=== PATIENT | female | born 1960 | race Caucasian/White ===

== ENCOUNTER → 2019-09-26 11:35 | Outpatient (CLI) | payer BC, SELFPAY ==
[2019-09-25 16:10] VITALS: BMI 27.8
[2019-10-02 01:58] LABS: HPV Reflexed? NOT INDICATED
== END ==
PROVIDERS: PCP Family Medicine; Referring Provider Family Medicine; Visit Provider Family Medicine
DX: Z01.419 Encounter for gynecological examination (general) (routine) without abnormal findings (principal)
CPT/HCPCS: 88175; G0145

== ENCOUNTER → 2019-10-08 14:41 | Outpatient (CLI) | payer BC, SELFPAY ==
[2019-09-25 16:10] VITALS: BMI 27.8
--- NOTE | 2019-10-08 15:38 | BI_ITS ---
MAMMOGRAPHY - UNILATERAL SCREENING: RIGHT BREAST REASON FOR EXAM: Female, 59 years old. Routine annual screening examination (unilateral). PERTINENT HISTORY: Personal history of breast cancer. Prior left mastectomy. Aunt with breast cancer. TECHNIQUE: Digital unilateral breast berry (3D mammographic acquisition) in the CC and MLO projections. 2-D mediolateral oblique (MLO) and craniocaudad (CC) views of both breasts were obtained. CAD: Full Field Digital Mammography with Computer Added Detection was performed. COMPARISON: Comparison is made with prior abdomen examination dated May 20, 2017. FINDINGS: Breast Composition: The breasts are almost entirely fatty. There are no dominant masses or suspicious calcifications. Stable small benign appearing left axillary lymph nodes. No other significant abnormalities are identified. There has been no significant change since the prior study. BI/SCREEN MAMM (CAD) W/BERRY UNI R IMPRESSION: Stable unilateral screening mammogram. Yearly follow-up mammogram recommended. (A) ASSESSMENT CATEGORY: BIRADS Category 2: Benign. A letter regarding these results will be sent to the patient by the facility within 30 days. Approximately 10% of breast cancers are not detected by mammography. A normal mammogram should not delay biopsy of a clinically suspicious abnormality. [id number] Electronically Signed: Mickey Lebron, at 14:36 EDT , Service support ,
[2019-10-08 17:18] LABS: Anion Gap 6 (5-15); BUN 15 mg/dL (7-18); Calcium,Total 8.8 mg/dL (8.5-10.1); Chloride 108 mmol/L (98-107); EST Glomerular Filtration Rate 60 mL/min (>60); Est Glom Filt Rate - Afr Amer 73 mL/min (>60); Glucose 91 mg/dL (74-106); Potassium 3.8 mmol/L (3.5-5.1); Sodium Level 142 mmol/L (136-145)
== END ==
PROVIDERS: PCP Family Medicine; Referring Provider Family Medicine; Visit Provider Family Medicine
DX: Z12.31 Encounter for screening mammogram for malignant neoplasm of breast (principal); I10 Essential (primary) hypertension
CPT/HCPCS: 36415; 77063; 77067; 80048

== ENCOUNTER → 2020-07-10 09:30 | Outpatient (CLI) | payer BC, SELFPAY ==
[2020-07-10 09:04] VITALS: BMI 29.7
[2020-07-10 12:24] LABS: Erythrocyte Sedimentation Rate 11 mm/hr (0-30)
[2020-07-10 12:30] LABS: CRP 3.03 mg/L (0.0-3.0)
== END ==
PROVIDERS: PCP Family Medicine; Referring Provider Physician Assistant; Visit Provider Physician Assistant
DX: M25.539 Pain in unspecified wrist (principal)
CPT/HCPCS: 36415; 85652; 86140

== ENCOUNTER → 2020-10-15 | Outpatient (CLI) | payer BC, SELFPAY ==
[2020-10-15 13:11] VITALS: BMI 29.7
[2020-10-15 13:45] LABS: Bacteria 0 SEEN /hpf (None Seen); Mucous, Urine 0 SEEN /hpf (<or=2+); Red Blood Cells-Urine 0 SEEN /hpf (0-5); Squamous Epithelial Cells - UA 0 SEEN /hpf (5-10); White Blood Cells 0 SEEN /hpf (0-5)
--- NOTE | 2020-10-15 14:23 | RAD_ITS ---
STUDY: X-RAY - RIGHT KNEE REASON FOR EXAM: Female, 60 years old. Chronic pain and intermittent swelling. TECHNIQUE: 3 view(s) of the knee. COMPARISON: None. FINDINGS: Normal visualized distal femur. Normal visualized proximal tibia and fibula. Normal proximal tibiofibular articulation. There is mild degenerative arthrosis of the medial femorotibial compartment. Normal lateral femorotibial compartment. There is severe degenerative arthrosis of the patellofemoral articulation. The soft tissue structures are unremarkable. RAD/Knee 3 Views IMPRESSION: Degenerative arthrosis. Electronically Signed: Mickey Lebron MD at 20:49 EDT , Service support ,
[2020-10-15 15:14] LABS: Color, Urine Yellow (Yellow); Glucose, Dipstick Normal (Normal); Ketone-Dipstick Negative (Negative); Leukocyte Esterase-Dipstick Negative /ul (Negative); Nitrite-Dipstick Negative (Negative); Occult Blood-Urine Negative /ul (Negative); Protein-Dipstick Negative (Negative); Urine Bilirubin Dipstick Negative (Negative); Urine Clarity Clear (Clear); Urine Urobilinogen Normal (Normal); Urine pH 6.5 (5.0 - 8.0)
[2020-10-15 15:23] LABS: Erythrocyte Sedimentation Rate 8 mm/hr (0-30)
[2020-10-15 15:45] LABS: ALB/GLOB Ratio 1.1 RATIO (0.9-2.4); AST(SGOT) 28 U/L (15-37); Alanine Aminotransfer ALT/SGPT 58 U/L (13-56); Albumin, Serum 3.9 g/dL (3.2-5.0); Alkaline Phosphatase 71 U/L (45-117); Anion Gap 4 (5-15); BUN 14 mg/dL (7-18); BUN/Creat Ratio 17.4 RATIO (10-20); Calcium,Total 9.1 mg/dL (8.5-10.1); Chloride 108 mmol/L (98-107); EST Glomerular Filtration Rate 77 mL/min (>60); Est Glom Filt Rate - Afr Amer 94 mL/min (>60); Globulin 3.7 g/dL (2.2-4.2); Glucose 77 mg/dL (74-106); Potassium 4.3 mmol/L (3.5-5.1); Protein, Total 7.6 g/dL (6.4-8.2); Sodium Level 139 mmol/L (136-145); Thyroid Stim Hormone (TSH) 1.58 uIU/mL (0.358-3.74)
== END | disposition home or self-care (01) ==
PROVIDERS: PCP Family Medicine; Referring Provider Family Medicine; Visit Provider Family Medicine
DX: I10 Essential (primary) hypertension (principal); K58.9 Irritable bowel syndrome, unspecified; R35.0 Frequency of micturition; M25.561 Pain in right knee
CPT/HCPCS: 36415; 73562; 80053; 81001; 84443; 85652

== ENCOUNTER → 2022-06-29 | Outpatient (CLI) | payer BC, SELFPAY ==
[2022-06-29 15:25] LABS: Absolute Lymphocyte Count 1.81 X10^3/uL (0.83-4.51); Absolute Neutrophil Count 2.9 X10^3/uL (2.0-7.7); Basophil# 0.07 X10^3/uL; Basophil% 1.3 % (0-1); Eosinophil# 0.26 X10^3/uL; Eosinophils% 4.8 % (0-5); Hematocrit 43.3 % (37-47); Hemoglobin 14.2 g/dL (12.0-15.0); Lymphocyte # 1.81 X10^3/ul (0.83-4.51); Lymphocyte % 33.3 % (19-41); Mean Corp Hgb Conc 32.8 g/dL (32-36); Mean Corpuscular Hgb 30.2 pg (27.0-32.0); Mean Corpuscular Volume 92.1 fL (81-99); Mean Platelet Vol. 10.5 fl (6.2-12.0); Monocyte# 0.41 X10^3/uL; Monocyte% 7.6 % (0-10); NRBC Flagged by Analyzer 0 % (0-5); Neutrophil # 2.87 X10^3/uL (2.7-7.7); Neutrophil % 52.8 % (47-70); Platelet Count 231 K/mm3 (150-450); RBC Distribution Width CV 12.1 % (11.6-14.6); RBC Distribution Width SD 41.2 fl (35.1-43.9); White Blood Count 5.4 K/mm3 (4.4-11.0)
[2022-06-29 15:29] LABS: AST(SGOT) 23 U/L (15-37); Alanine Aminotransfer ALT/SGPT 49 U/L (13-56); Albumin, Serum 3.8 g/dL (3.2-5.0); Alkaline Phosphatase 64 U/L (45-117); Anion Gap 4 (5-15); BUN 19 mg/dL (7-18); BUN/Creat Ratio 22.8 RATIO (10-20); Calcium,Total 9.4 mg/dL (8.5-10.1); Chloride 110 mmol/L (98-107); Creatinine, Serum 0.83 mg/dL (0.55-1.02); EST Glomerular Filtration Rate 74 mL/min (>60); Est Glom Filt Rate - Afr Amer 89 mL/min (>60); Globulin 3.8 g/dL (2.2-4.2); Glucose 92 mg/dL (74-106); Protein, Total 7.6 g/dL (6.4-8.2); Sodium Level 140 mmol/L (136-145)
[2022-06-29 16:06] LABS: Erythrocyte Sedimentation Rate 5 mm/hr (0-30)
== END | disposition home or self-care (01) ==
PROVIDERS: PCP Family Medicine; Referring Provider Family Medicine; Visit Provider Family Medicine
DX: I10 Essential (primary) hypertension (principal); K21.9 Gastro-esophageal reflux disease without esophagitis
CPT/HCPCS: 36415; 80053; 85025; 85652

== ENCOUNTER → 2022-07-27 | Outpatient (CLI) | payer BC, SELFPAY ==
--- NOTE | 2022-07-27 09:42 | RAD_ITS ---
PROCEDURE: ESOPHAGRAM - CONTRAST UPPER GASTROINTESTINAL STUDY DATE OF EXAMINATION: July 27, 2022. INDICATION: Female, 62 years old. Upper abdominal pain and gastroesophageal reflux. PHYSICIAN: Mickey Lebron M.D. FLUOROSCOPY TIME (if supplied): (0:49) minutes/seconds. 29.91 mGy. 8 spot images were obtained. TECHNIQUE: The esophagus, stomach, duodenum and proximal small bowel were evaluated with barium. The contrast material passes freely through the structures with no intraluminal filling defect identified. There is no mucosal irregularity. There is no leakage of contrast outside the gastrointestinal system. There is evidence of a small sliding nail hernia with gastroesophageal reflux. The patient ingested a 12 mm tablet of barium without any difficulty. The stomach is unremarkable. No evidence of ulceration. No mass lesion is seen. The proximal small bowel is not dilated and there is a rapid transient time for the contrast to pass through the gastrointestinal tract. RAD/Upper GI w/BA Swallow IMPRESSION: Small sliding hiatal hernia with gastroesophageal reflux. Electronically Signed: Mickey Lebron MD at 11:06 EDT ,
== END | disposition home or self-care (01) ==
LOC: RAD 09:41
PROVIDERS: PCP Family Medicine; Referring Provider Surgery; Visit Provider Surgery
DX: K21.9 Gastro-esophageal reflux disease without esophagitis (principal)
CPT/HCPCS: 74246

== ENCOUNTER → 2022-07-29 | Outpatient (CLI) | payer BC, SELFPAY ==
--- NOTE | 2022-07-29 12:22 | US_ITS ---
STUDY: ULTRASOUND BREAST - RIGHT REASON FOR EXAM: Female, 62 years old. Palpable lump in the right breast. TECHNIQUE: Axial and longitudinal images of the RIGHT breast were performed with a high resolution ultrasound transducer. # OF IMAGES: 14 COMPARISON: Comparison is made with prior mammogram done earlier in the day. FINDINGS: RIGHT Breast: The palpable abnormality corresponds to a 6 mm x 6 mm x 3 mm echogenic nodule at the 3:00 position of the breast at the 8 cm from nipple. A similar appearing nodule measuring 0.8 cm by 1.6 x 0.5 cm is seen adjacent to this location. These most likely represent lipomas. US/Breast Limited Unilateral IMPRESSION: Findings suggestive of a 2 small lipomas in the 3:00 position of the right breast. ASSESSMENT CATEGORY: BIRADS Category 2: Benign. A letter regarding these results will be sent to the patient by the facility within 30 days. Electronically Signed: Mickey Lebron MD at 14:55 EDT ,
--- NOTE | 2022-07-29 12:22 | BI_ITS ---
MAMMOGRAPHY - UNILATERAL DIAGNOSTIC: RIGHT BREAST REASON FOR EXAM: Female, 62 years old. Palpable lump in the central medial aspect of the right breast. PERTINENT HISTORY: Personal history of breast cancer. Aunts with breast cancer. TECHNIQUE: Digital unilateral breast jagdeep (3D mammographic acquisition) in the CC and MLO projections. 2-D mediolateral oblique (MLO) and craniocaudad (CC) views of both breasts were obtained. CAD: Full Field Digital Mammography with Computer Added Detection was performed. COMPARISON: Comparison is made with prior study dated October 08, 2019 and outside examination dated January 05, 2022. FINDINGS: Breast Composition: The breasts are almost entirely fatty. There are no dominant masses or suspicious calcifications. The patient is status post left mastectomy. Stable small benign-appearing right axillary lymph nodes. No other significant abnormalities are identified. There has been no significant change since the prior study. BI/DIAG MAMM W/CAD, UNILAT IMPRESSION: Stable unilateral diagnostic mammogram. With the patient''s history of a palpable lump in the right breast, correlation with ultrasound is recommended. ASSESSMENT CATEGORY: BIRADS Category 0: Incomplete. Need additional imaging evaluation. A letter regarding these results will be sent to the patient by the facility within 30 days. Approximately 10% of breast cancers are not detected by mammography. A normal mammogram should not delay biopsy of a clinically suspicious abnormality. Electronically Signed: Mickey Lebron MD at 13:50 EDT ,
== END | disposition home or self-care (01) ==
PROVIDERS: PCP Family Medicine; Referring Provider Surgery; Visit Provider Surgery
DX: N63.10 Unspecified lump in the right breast, unspecified quadrant (principal); Z85.3 Personal history of malignant neoplasm of breast
CPT/HCPCS: 76642; 77061; 77065; G0279

== ENCOUNTER → 2022-08-11 | Outpatient (CLI) | payer BC, SELFPAY ==
--- NOTE | 2022-08-11 | BRBX_PTH ---
PATIENT: NIKHIL DAWSON LOC: [facility] #:[id number] AGE/SX: 62/F ROOM: RE08/11/[address]: Dr. Keon Langston MD : 1960 BED: DIS: 08/11/2022 SPEC #: [id number] RECD: 08/11/22 15:31 STATUS: [facility] #: [id number] NELSON: 08/11/22 00:[address]: Keon Langston DEPT: SURGICAL PATHOLOGY RECD BY: Inderjit Gray ENTERED: 08/12/22 11:53 SP TYPE: BREAST BX OTHR DR: Dr. Dick Graf, DO Tissues: A - Right breast, NOS B - Right breast, NOS Procedures: Surgery Specimen Level III HEADER OPERATION: Excision of lipoma right breast PRE-OP DIAGNOSIS: Lipoma right breast TISSUE SUBMITTED: A ? Right breast lipoma 3 o?clock, B - Right breast lipoma 4 o?clock MICROSCOPIC DIAGNOSIS A. Right breast lipoma, 3 o?clock, excision: Mature adipose tissue consistent with lipoma. B. Right breast lipoma, 4 o?clock, excision: Mature adipose tissue consistent with lipoma. FATEMEH:zora 08/13/2022 MICROSCOPIC DESCRIPTION Slides are reviewed. GROSS DESCRIPTION A - Received in fixative is one container labeled with the patient's name and designated 3 o'clock right breast lipoma. The specimen consists of an irregular piece of yellow adipose tissue measuring 2.5 x 1.5 x 0.2 cm. The entire specimen is submitted in two cassettes. B - Received in fixative is one container labeled with the patient's name and designated 4 o'clock right breast lipoma. The specimen consists of multiple elongated pieces of yellow fibroadipose tissue measuring in aggregate 3.0 x 2.5 x 1.0 cm. The entire specimen is submitted in two cassettes. / SJ:zora 08/12/2022 TC:1 CPT: 02416 x2
== END | disposition home or self-care (01) ==
LOC: LABSPEC 15:42
PROVIDERS: PCP Family Medicine; Referring Provider Surgery; Visit Provider Surgery
DX: D17.39 Benign lipomatous neoplasm of skin and subcutaneous tissue of other sites (principal)
CPT/HCPCS: 88304; 88305

== ENCOUNTER 2022-08-19 07:07 | Day surgery (SDC) | payer BC, SELFPAY ==
--- NOTE | 2022-08-18 08:30 | EGD_PTH ---
PATIENT: NIKHIL DAWSON [facility] #:[id number] LOC: EN U#:[id number] AGE/SX: 62/F ROOM: RE08/19/[address]: Dr. Keon Langston MD : 1960 BED: DIS: 08/19/2022 SPEC #: [id number] RECD: 08/19/22 10:05 STATUS: [facility] #: [id number] NELSON: 08/18/22 08:[address]: Keon Langston DEPT: SURGICAL PATHOLOGY RECD BY: Brigid Katz ENTERED: 08/19/22 10:58 SP TYPE: EGD BIOPSY OTHR DR: Dr. Dick Graf, DO Tissues: A - Gastric mucous membrane B - Cardioesophageal junction C - Stomach, NOS D - Stomach, NOS E - Esophagus, NOS F - COLON BIOPSY G - Transverse colon H - Descending colon Procedures: Special Stain Group II Surgery Specimen Level IV Alcian Blue/PAS (control) HEADER OPERATION: Colonoscopy, EGD (MAC), biopsy, polypectomy PRE-OP DIAGNOSIS: Postprandial epigastric pain, GERD, screening TISSUE SUBMITTED: A - Antrum biopsy for H. pylori and path, B - Cardia polyp biopsy, C - Z-line nodule biopsy, D - Z-line biopsy, E - Plaque distal esophagus, F - Random colonic biopsies, G - Random transverse colon biopsies, H - Random descending colon biopsies MICROSCOPIC DIAGNOSIS A. Gastric antrum, biopsy: Chronic gastritis. See comment. B. Cardia polyp, biopsy: Polypoid fragment of benign gastric mucosa. Mild chronic inflammation. C. Z-line nodule, biopsy: Gastroesophageal junctional mucosa with mild chronic inflammation. No evidence of goblet cell metaplasia. No evidence of dysplasia. Fragments of benign smooth muscle. See comment. D. Z-line, biopsy: Gastroesophageal junctional mucosa with mild chronic inflammation. No evidence of goblet cell metaplasia. See comment. E. Distal esophageal plaque, biopsy: Fragments of benign squamous mucosa. F. Colon, random biopsy: No pathologic change. G. Random transverse colon biopsy: No pathologic change. H. Descending colon, biopsy: No pathologic change. AM:zora 08/20/2022 COMMENT A. The results of immunohistochemistry for Helicobacter pylori will be reported separately ([id number]). C. Immunohistochemistry ([id number]) supports the above diagnosis. Alcian blue/PAS stain with matched control supports the above diagnosis. D. Alcian blue/PAS stain with matched control supports the above diagnosis. Prominent smooth muscle bundle fibers are present in the biopsy and may represent portions of a mucosal/submucosal leiomyoma. Clinical correlation is necessary. This case was discussed with Dr. Langston by Dr. Jones on 08/26/2022. MICROSCOPIC DESCRIPTION Slides are reviewed. GROSS DESCRIPTION A - Received in fixative is one container labeled with the patient's name and designated antrum biopsy. The specimen consists of two irregular fragments of light leonard soft tissue that in aggregate measure 0.6 x 0.3 x 0.1 cm. The specimen is totally submitted in one cassette. B - Received in fixative is one container labeled with the patient's name and designated cardia polyp biopsy. The specimen consists of two irregular fragments of light leonard soft tissue that in aggregate measure 0.6 x 0.2 x 0.1 cm. The specimen is totally submitted in one cassette. C - Received in fixative is one container labeled with the patient's name and designated Z-line nodule. The specimen consists of multiple irregular fragments of light leonard soft tissue that in aggregate measure 1.0 x 0.8 x 0.2 cm. The specimen is totally submitted in one cassette. D - Received in fixative is one container labeled with the patient's name and designated Z-line biopsy. The specimen consists of one irregular fragment of light leonard soft tissue that measures 0.3 x 0.3 x 0.1 cm. The specimen is totally submitted in one cassette. E - Received in fixative is one container labeled with the patient's name and designated plaque distal esophagus. The specimen consists of two irregular fragments of light leonard soft tissue that in aggregate measure 0.5 x 0.2 x 0.1 cm. The specimen is totally submitted in one cassette. F - Received in fixative is one container labeled with the patient's name and designated random colon biopsy. The specimen consists of one irregular fragment of light leonard soft tissue that measures 0.6 x 0.3 x 0.1 cm. The specimen is totally submitted in one cassette. G - Received in fixative is one container labeled with the patient's name and designated random transverse colon biopsy. The specimen consists of one irregular fragment of light leonard soft tissue that measures 0.3 x 0.3 x 0.1 cm. The specimen is totally submitted in one cassette. H - Received in fixative is one container labeled with the patient's name and designated random descending colon biopsy. The specimen consists of one irregular fragment of light leonard soft tissue that measures 0.5 x 0.3 x 0.1 cm. The specimen is totally submitted in one cassette. / SJ:zora 08/19/2022 TC:3 CPT: 56331 x8, 79711 x2
[2022-08-19 07:22] VITALS: BP 111/84; PULSE 82; RESP 16; TEMP 36.7; O2SAT 99; BMI 28.7
[2022-08-19] MEDS: Lactated Ringers 1,000 ML 15 ML IV (07:30)
--- NOTE | 2022-08-19 07:47 | PCM.HP.BLA ---
History and Physical Date of Admission: 08/19/22 Date of Service:? 07/09/22 MR#: [id number] Acct: [id number] Name:NIKHIL FERNANDEZ Rep #: [id number] : 1960 ? ? Provider: Dr. Keon Langston MD Age/Sex:? 62/F ? ? Location: [facility] Status: Signed Intake Vital Signs ? 07/09/2312:48 Height 5 ft 5 in Weight: 178 lb 8 oz BMI 29.7 BP 120/79 Blood Pressure Location Rt brachial Position Sitting Respiration 17 Pulse 79 Pulse Source Monitor Temp 97.2 F L Temp Source Temporal Pulse Oximetry (%) 95 Oxygen Delivery Method room air Intake Visit Reasons:?GERD/R BREAST CYST Chief Complaint: gerd/right breast cyst Allergies oxycodone Allergy (Intermediate, Verified 07/09/22 13:50) Vomitinganesthesia Allergy (Severe, Uncoded 07/09/22 13:50) vomiting Medications cetirizine 10 mg capsule (Zyrtec) 10 mg PO DAILY 12/27/17 [History Confirmed 07/09/22] ibuprofen 200 mg tablet 200 mg PO TID-QID PRN 12/27/17 [History Confirmed 07/09/22] diclofenac sodium 1 % topical gel 2 gm topical ONCE wrist pain #50 grams 07/10/20 [Rx Confirmed 07/09/22] dicyclomine 20 mg tablet 20 mg PO TID #30 tabs 12/16/20 [Rx Confirmed 07/09/22] escitalopram oxalate 20 mg tablet 20 mg PO QDAY #90 tabs 12/23/21 [Rx Confirmed 07/09/22] estradiol 0.01% (0.1 mg/gram) vaginal cream (Estrace) 1 g vaginal 2XW #42.5 grams 12/23/21 [Rx Confirmed 07/09/22] lisinopril 20 mg tablet 20 mg PO QDAY #90 tabs 12/23/21 [Rx Confirmed 07/09/22] gabapentin 100 mg capsule 100 mg PO BID #180 caps 06/11/22 [Rx Confirmed 07/09/22] PFSH Medical History? Anxiety Arthritis Depression with anxiety GERD (gastroesophageal reflux disease) History of breast cancer History of skin cancer Hypertension IBS (irritable bowel syndrome) Neuropathy Seasonal allergies Surgical History? History of bilateral cataract extraction History of breast augmentation History of carpal tunnel release History of cholecystectomy History of left mastectomy History of liver biopsy Family History? Brother Alcoholism Anxiety HypertensionSister Anxiety Arthritis Seizures Thyroid disorder HypertensionMother Alcoholism Liver diseaseFather Colon cancerGrandmother Heart diseaseAunt Breast cancer ?? ? 3 maternal aunts Social History? Smoking Status:? Never smoker alcohol intake:? current alcohol intake frequency: a few times a month Alcohol type: beer and wine substance use type:? does not use what type of physical activity do you participate in:? walking HPI HPI HPI: Patient is a 62-year-old female who presents for evaluation of chronic reflux and a right breast cyst.? They are referred for surgical consultation from Dr. Graf. ? Patient states that her most significant complaint is that it feels like food is getting stuck beneath [my] breastbone.? Along with this, she complains that anything that she drinks which is ice cold leads to pain in her ribs.? She reports having to swallow multiple times and taking a deep breath before this clears.? She states it is almost as if she feels full but is still hungry.? She notes that she stops eating on the account of pain and pressure in this location.? Beyond this issue, she describes a years long history of reflux (and she does distinguish this from heartburn).? She states that she has been on omeprazole 20 mg every day for years.? She estimates that this medication takes away 80% of her symptoms.? When she does not take the medication, she describes feeling and tasting acid burning up her throat.? They have attempted dietary modifications; the try to avoid spaghetti sauces and have recognized that caffeine can be a contributor.? They report a caffeine consumption approximately 3 cups of coffee in the morning each day.? Mrs. Faulkner confirms that she generally eats her dinner at least 4 hours before bedtime and that she will prop herself up in bed if she is feeling reflux symptoms.? She denies any history of prior endoscopy. Since endoscopy is considered, patient is asked about her lower GI habits.? She reports a diagnosis of irritable bowel syndrome and states that she experiences diarrhea for more than any constipation.? She notes that her prescription of dicyclomine helps with the symptoms.? She denies any periods of straining or bleeding.? (Along with that she denies any history of hemorrhoids).? She does confirm a history of some bloating.? She does not use any fiber in supplemental fashion, but has a modest intake of fruits and vegetables. Patient has a family history of both her sister and brother diagnosed with irritable bowel syndrome.? She also reports that her sister is diagnosed with Crohn's colitis. Regarding her breast concerns, patient states that she has had a right breast cyst for the past 3 years.? She describes her biggest complaint as soreness.? She states that this cyst seem to develop deeper within her breast, but is now at the surface.? She denies that the soreness has progressed in its intensity.? She denies any associated drainage, warmth, or redness.? Further she denies any nipple discharge or inversion.? She relates that she initially underwent an ultrasound and mammogram when she first detected this concern and was simply reassured that there was nothing to be done.? She has had 2 subsequent mammograms but remains bothered by the symptoms.? Patient's most recent mammogram was completed January 05, 2022 and was read as clearly benign.? Patient has a prior history of breast breast cancer in the left breast and reports a biopsy was performed for that diagnosis, but she has not had other breast biopsies.? She states that she was both diagnosed and underwent left mastectomy with Dr. Lang in 2004.? She then underwent delayed reconstruction in 2006 and, subsequently in 2020.? She describes reconstruction with a latissimus dorsi flap and implants (the second reconstruction was occasioned by leaking implant from 2006).? Immediately following her mastectomy, patient completed 6 months of chemotherapy due to a single lymph node that was positive and then completed 5 more years of tamoxifen therapy. She underwent menarche at the age of 12 and menopause in 2004 with her chemotherapy.? She has had no pregnancies.? Patient has no first-degree relatives with breast cancer, but does report that 2 maternal aunts as well as a cousin were diagnosed with breast cancer (she is unsure of their age at diagnosis). ROS General General: Yes fatigue and breast cancer; No weight change, appetite, colon cancer or weakness HEENT HEENT: Yes difficulty swallowing and eye surgery; No eye injury, swollen glands or hoarseness Endo Endocrine: No thyroid disease, diabetes mellitus, thyroid cancer, Hair loss, heat intolerance or cold intolerance Skin Skin: No rash or changing moles Breast Breast: Yes right breast lump; No left breast lump, nipple discharge, breast pain, abnormal mammogram, abnormal US or breast enlargement Musc Musculoskeletal: Yes arthritis; No back problems, rheumatoid arthritis, gout or joint pain Cardio Cardiovascular: Yes high blood pressure; No murmur, pacemaker, heart disease, atrial fibrillation, heart attack, heart stent, palpitations, shortness of breat with exertion or chest pain Psych Psychiatric: Yes depression and anxiety; No hearing voices Resp Respiratory: No shortness of breath, Yes sleep apnea, No cough, No COPD, No asthma, No emphysema and No wheezing Gastro Gastrointestinal: No abdominal pain, Yes nausea or vomiting, No diarrhea, No constipation, No blood in stool, Yes acid reflux, No hemorrhoids, No ulcers, No gallbladder problem and No black,tarry stools Darren Hematologic: No blood thinners, No blood disorders, No bleeding, No anemia and No blood clots Neuro Neurologic: No system reviewed and no additional complaints, except as documented, No as per HPI, No abnormal gait, No abnormal hearing, No abnormal movements, No abnormal speech, No behavioral changes, No burning sensations, No confusion, No convulsions, No disequilibrium, No dizziness, No localized weakness, No frequent falls, No headache(s), No lack of coordination, No loss of vision, No memory loss, Yes numbness, No other visual disturbances, No radicular pain, No restless legs, No sensory deficit, No syncope, Yes tingling, No tremor(s), No weakness and No other Exam Const General: cooperative and anxious Orientation: alert, awake and oriented x3 HENMT Head: normocephalic and atraumatic Chest Other: Bilateral breasts are examined in both the upright position.? There are scars on both breast (patient states that she had a lift performed with her right breast in order to match her reconstructed left breast).? The right breast is examined in the supine position and identify a small cystic area approximately 1 cm in diameter that is very superficial to the skin and appears to have some attenuated overlying skin.? This is located at the 3 o'clock position approximately 8 cm from the areola.? There is a second area of tenderness which is located at the 7 o'clock position approximately 4 cm from the areola.? When palpated this feels consistent with dense lobular breast tissue. Resp Effort & Inspection: normal respiratory effort GI Other: Several port site scars are evident and are well-healed.? Abdomen is nondistended.? Patient denies any tenderness of the epigastrium or with four-quadrant palpation. Assessment and Plan Assessment and Plan (1) Postprandial epigastric pain: ?Status:?Acute ?Comment: This is a 62-year-old female who describes rather recent onset of postprandial epigastric discomfort.? Differential could include peptic ulcer disease, hiatal hernia, gastritis, pancreatitis,?.? Patient's PCP reported concern for possible gastric outlet obstruction, but patient is denying any history of prior imaging.? Patient denies any discomfort with exam.? To better evaluate this concern, I am recommending we proceed with a upper GI barium swallow study and diagnostic EGD.? I have also recommended to patient that she try to take her PPI in the mornings prior to any other oral intake for maximal effect. ?Plan: ? Upper GI barium swallow ? Diagnostic EGD at first mutually available date ? Recommend transitioning PPI administration to a.m. timing (2) GERD (gastroesophageal reflux disease): ?Status:?Chronic ?Comment: Chronic history of reflux in addition to the above.? It is possible this reflux and patient's more recent complaints of discomfort could be related.? As above, we will pursue a noninvasive study with upper GI barium swallow, but also plan for an EGD.? Given patient's reports, 1 assess for any changes related to chronic inflammation. ?Plan: ? Upper GI study, EGD, and PPI administration as above (3) Breast nodule: ?Status:?Acute ?Comment: Patient with a right breast cyst/nodule.? Patient describes a 3-year history with this issue.? She states that she is tired of the discomfort that it causes.? On exam, this area appears to only be approximately 1 cm in diameter.? Patient has had 3 normal mammograms, but I do believe I see a distortion at the surface with her most recent imaging.? She reports a ultrasound performed shortly after noticing this issue 3 years ago, however, she states that the lesion has become more superficial over time and this would lend itself well to repeat ultrasound exam.? Therefore, I would like to obtain a soft tissue ultrasound of the area, but if it appears small and discrete with this imaging, would consider an office excision for patient. ?Plan: ? Right breast soft tissue ultrasound of cystic/nodular area 3 o'clock position from the areola approximately 8 cm from the areolar border ? We will follow-up above imaging and consider possible excision (4) History of breast cancer: ?Status:?Chronic ?Comment: Patient appears to have regular, routine screening mammography that have remained benign.? Still, given her complaints of this new breast lesion, I am pursuing a dedicated ultrasound. (5) Screening for colon cancer: ?Status:?Acute ?Comment: Diagnostic EGD indicated for above complaints of postprandial epigastric discomfort.? Given that patient has never completed a screening colonoscopy, and carries a diagnosis of IBS, I have recommended we pursue a concurrent screening colonoscopy.? This is further recommended after I learn that patient's sister is diagnosed with Crohn's colitis.? Patient is adamant that her frequency of diarrhea has not been progressive.? I discussed the need for a bowel prep and a contract driver the day of procedure.? Patient accepts this recommendation. ?Plan: ? Screening colonoscopy to be completed concurrent with patient's diagnostic EGD as described above.? Prep instructions provided. ? ? ? Orders: I have examined the patient and the H&P has been reviewed. There are no clinical changes since date of exam. Patient confirms that she completed her prep for today's procedure and her output is now clear. She denies any questions related to our plans for today's upper and lower endoscopy. Related to patient's history of breast lipomas, I quickly checked the site of her lipoma excisions and found them to be well-healing and well approximated. There is some significant ecchymosis to the area, but no signs of wound compromise or infection. I also shared with her the results of her pathology which were consistent with mature adipose tissue/benign lipomas.
--- NOTE | 2022-08-19 08:30 | IMM_PTH ---
PATIENT: NIKHIL DAWSON LOC: EN U#:[id number] AGE/SX: 62/F ROOM: RE08/19/[address]: Dr. Keon Langston MD : 1960 BED: DIS: 08/19/2022 SPEC #: [id number] RECD: 08/19/22 12:57 STATUS: DAVONTE REQ #: [id number] NELSON: 08/19/22 08:[address]: Keon Langston DEPT: IMMUNOHISTOCHEMISTRY RECD BY: Rose Mary Doss ENTERED: 08/19/22 12:57 SP TYPE: IMMUNO OTHR DR: Dr. Dick Graf, DO Tissues: A - Stomach, NOS C - Stomach, NOS Procedures: H Pylori (initial) SMA (add) DESMIN (add) KI-67 (add) P53 (add) SMM (add) Vimentin (initial) PHYSICIAN & INSTITUTION [place] [id number] SPECIMEN INFORMATION: Tissue Source: A ? Antrum biopsy, C ? Z-line nodule biopsy Clinical Info: Postprandial epigastric pain Specimen Number: [id number] A & C CPT code: 71238 x2, 02034 x5 METHODOLOGY: Deparaffinized sections of prefer/formalin-fixed tissue or PAP/DQ stained slides are incubated with monoclonal/polyclonal antibodies/oligonucleotide probes. Localization is made via biotin free immunoperoxidase method. Appropriate controls are performed and reacted as expected. Results on target cell population are indicated in the following table: RESULTS: ANTIBODY / CLONE RESULT Block A H Pylori (polyclonal) negative Block C Actin (1A4) positive Vimentin (V9) negative Desmin (CE-R-11) positive Myosin (simms1) positive P53 (DO-7) negative, null pattern Ki-67 (30-9) negative These tests were developed and their performance characteristics determined by [facility]. They may not have been cleared or approved by the U.S. Food and Drug Administration. The FDA has determined that such clearance or approval is not necessary. The above immunohistochemical/dualISH markers are ordered and reviewed by the Pathologist. INTERPRETATION: A. Antrum, biopsy: Negative for Helicobacter pylori organisms. C. Z-line nodule, biopsy: Consistent with smooth muscle tissue. AM:zora 08/24/2022
[2022-08-19 08:55] VITALS: BP 111/84; BP 96/61; PULSE 94; RESP 18; TEMP 37.1; O2SAT 97
[2022-08-19 09:00] VITALS: BP 100/53; BP 111/84; PULSE 67; RESP 18; O2SAT 94
--- NOTE | 2022-08-19 09:04 | OP.CCLET_ITS ---
08/19/2022 Dick Graf Re : Upper GI endoscopy procedure for Sharon Faulkner Dear Dr. Graf This procedure was performed on July. My impressions and recommendations are as follows: Impressions : - Erythematous mucosa in the gastric body and antrum. Biopsied. - A few gastric polyps. Biopsied. - Medium-sized hiatal hernia. - Mucosal nodule found in the esophagus. - Z-line irregular, 34 cm from the incisors. Biopsied. Treated with a monopolar probe. - White nummular lesions in esophageal mucosa. Biopsied. - The examination was otherwise normal. Recommendations : - Discharge patient to home (via wheelchair). - Resume previous diet today. - Continue present medications. - Await pathology results. - Repeat upper endoscopy after studies are complete for surveillance based on pathology results. - Telephone my office for pathology results in 1 week. My findings are described in the full procedure note, which is enclosed. If I can be of further assistance, please feel free to contact me at Doctor phone number(s): , Work: . Sincerely, Keon Langston MD 08/19/2022 9:04:04 AM This report has been signed electronically.
--- NOTE | 2022-08-19 09:04 | OP.EGD_ITS ---
Patient Name: Sharon Faulkner Procedure Date: 08/19/2022 7:37 AM Date of : 1960 Age: 62 Procedure: Upper GI endoscopy Indications: Esophageal reflux Providers: Keon Langston MD Medicines: See the Anesthesia note for documentation of the administered medications Patient Profile: Patient has symptoms of chronic dysphagia. Refer to note in patient chart for documentation of history and physical. Complications: No immediate complications. Estimated blood loss: Minimal. Procedure: Pre-Anesthesia Assessment: - The heart rate, respiratory rate, oxygen saturations, blood pressure, adequacy of pulmonary ventilation, and response to care were monitored throughout the procedure. After obtaining informed consent, the endoscope was passed under direct vision. Throughout the procedure, the patient's blood pressure, pulse, and oxygen saturations were monitored continuously. The colonoscope was introduced through the mouth, and advanced to the third part of duodenum. The upper GI endoscopy was accomplished without difficulty. The patient tolerated the procedure well. Scope In: 7:58:35 AM Scope Out: 8:28:08 AM Total Procedure Duration Time 0 hours 29 minutes 33 seconds Findings: Diffuse mildly erythematous mucosa without bleeding was found in the gastric body and in the gastric antrum. Biopsies were taken with a cold forceps for Helicobacter pylori testing. Estimated blood loss was minimal. A few 3 mm semi-sessile polyps with no bleeding and no stigmata of recent bleeding were found in the cardia. Biopsies were taken with a cold forceps for histology. Estimated blood loss was minimal. A medium-sized hiatal hernia was present. A single 3 mm mucosal nodule with a localized distribution was found in the lower third of the esophagus, 34 cm from the incisors. The polyp was removed with a hot snare. Polyp resection was incomplete. The resected tissue was retrieved. Estimated blood loss: none. The Z-line was irregular and was found 34 cm from the incisors. Biopsies were taken with a cold forceps for histology. Estimated blood loss was minimal. Coagulation for hemostasis using monopolar probe was successful. White nummular lesions were noted in the distal esophagus. Biopsies were taken with a cold forceps for histology. Estimated blood loss was minimal. The exam was otherwise without abnormality. Impression: - Erythematous mucosa in the gastric body and antrum. Biopsied. - A few gastric polyps. Biopsied. - Medium-sized hiatal hernia. - Mucosal nodule found in the esophagus. - Z-line irregular, 34 cm from the incisors. Biopsied. Treated with a monopolar probe. - White nummular lesions in esophageal mucosa. Biopsied. - The examination was otherwise normal. Recommendation: - Discharge patient to home (via wheelchair). - Resume previous diet today. - Continue present medications. - Await pathology results. - Repeat upper endoscopy after studies are complete for surveillance based on pathology results. - Telephone my office for pathology results in 1 week. Procedure Code(s): --- Professional --- 49146, 59, Esophagogastroduodenoscopy, flexible, transoral; with control of bleeding, any method 19461, Esophagogastroduodenoscopy, flexible, transoral; with removal of tumor(s), polyp(s), or other lesion(s) by snare technique Diagnosis Code(s): --- Professional --- K31.89, Other diseases of stomach and duodenum K31.7, Polyp of stomach and duodenum K44.9, Diaphragmatic hernia without obstruction or gangrene K22.8, Other specified diseases of esophagus K21.9, Gastro-esophageal reflux disease without esophagitis CPT copyright 2017 [employer]. All rights reserved. The codes documented in this report are preliminary and upon accounting manager controller review may be revised to meet current compliance requirements. Keon Langston MD 08/19/2022 9:04:04 AM This report has been signed electronically. Number of Addenda: 0 Note Initiated On: 08/19/2022 7:37 AM
[2022-08-19 09:05] VITALS: BP 111/84; BP 98/63; PULSE 69; RESP 18; O2SAT 97
[2022-08-19 09:10] VITALS: BP 111/84; BP 92/55; PULSE 77; RESP 18; TEMP 36.9; O2SAT 99
--- NOTE | 2022-08-19 09:12 | OP.COLON_ITS ---
Patient Name: Sharon Faulkner Procedure Date: 08/19/2022 8:28 AM Date of : 1960 Age: 62 Procedure: Colonoscopy Indications: Screening for colorectal malignant neoplasm Providers: Keon Langston MD Medicines: Monitored Anesthesia Care Patient Profile: Patient has symptoms of chronic dysphagia. Refer to note in patient chart for documentation of history and physical. Last Colonoscopy: none. The patient's first colonoscopy is today. Complications: No immediate complications. Estimated blood loss: Minimal. Procedure: Pre-Anesthesia Assessment: - The heart rate, respiratory rate, oxygen saturations, blood pressure, adequacy of pulmonary ventilation, and response to care were monitored throughout the procedure. - The heart rate, respiratory rate, oxygen saturations, blood pressure, adequacy of pulmonary ventilation, and response to care were monitored throughout the procedure. After I obtained informed consent, the scope was passed under direct vision. Throughout the procedure, the patient's blood pressure, pulse, and oxygen saturations were monitored continuously. The colonoscope was introduced through the anus and advanced to the cecum, identified by the appendiceal orifice, ileocecal valve and palpation. The colonoscopy was performed without difficulty. The patient tolerated the procedure well. The quality of the bowel preparation was good. Scope In: 8:29:39 AM Scope Withdrawal Time 0 hours 15 minutes 34 seconds Scope Out: 8:49:07 AM Total Procedure Duration Time 0 hours 19 minutes 28 seconds Findings: The ileocecal valve was mildly lipomatous. No biopsies or other specimens were collected for this exam. A few small-mouthed diverticula were found in the sigmoid colon. No biopsies or other specimens were collected for this exam. The entire examined colon appeared normal on direct and retroflexion views. One biopsy was obtained with cold forceps for histology in the ascending colon, as well as one biopsy in the proximal transverse colon and one biopsy in the descending colon. No additional abnormalities were found on retroflexion. Impression: - Lipomatous ileocecal valve. No specimens collected. - Diverticulosis in the sigmoid colon. No specimens collected. - The entire examined colon is normal on direct and retroflexion views. - Biopsies performed in the ascending colon, in the proximal transverse colon and in the descending colon. Recommendation: - Discharge patient to home (via wheelchair). - High fiber diet today. - Continue present medications. - Await pathology results. - Repeat colonoscopy in 10 years for screening purposes. - Telephone my office for pathology results in 1 week. Procedure Code(s): --- Professional --- 66827, Colonoscopy, flexible; with biopsy, single or multiple Diagnosis Code(s): --- Professional --- Z12.11, Encounter for screening for malignant neoplasm of colon K63.89, Other specified diseases of intestine K57.30, Diverticulosis of large intestine without perforation or abscess without bleeding CPT copyright 2017 [employer]. All rights reserved. The codes documented in this report are preliminary and upon director of business development review may be revised to meet current compliance requirements. Keon Langston MD 08/19/2022 9:12:13 AM This report has been signed electronically. Number of Addenda: 0 Note Initiated On: 08/19/2022 8:28 AM
--- NOTE | 2022-08-19 09:13 | OP.CCLET_ITS ---
08/19/2022 Dick Graf Re : Colonoscopy procedure for Sharon Faulkner Dear Dr. Graf This procedure was performed on July. My impressions and recommendations are as follows: Impressions : - Lipomatous ileocecal valve. No specimens collected. - Diverticulosis in the sigmoid colon. No specimens collected. - The entire examined colon is normal on direct and retroflexion views. - Biopsies performed in the ascending colon, in the proximal transverse colon and in the descending colon. Recommendations : - Discharge patient to home (via wheelchair). - High fiber diet today. - Continue present medications. - Await pathology results. - Repeat colonoscopy in 10 years for screening purposes. - Telephone my office for pathology results in 1 week. My findings are described in the full procedure note, which is enclosed. If I can be of further assistance, please feel free to contact me at Doctor phone number(s): , Work: . Sincerely, Keon Langston MD 08/19/2022 9:12:13 AM This report has been signed electronically.
[2022-08-19 10:03] VITALS: BP 111/84
== END 2022-08-19 10:14 | disposition home or self-care (01) ==
LOC: EN 07:08 → AC 07:10
PROVIDERS: PCP Family Medicine; Referring Provider Surgery; Visit Provider Surgery
PROC: 0DJD8ZZ Inspection of Lower Intestinal Tract, Via Natural or Artificial Opening Endoscopic (ICD-10-PCS; CPT 45378; principal; 2022-08-19 08:25)
DX: K29.50 Unspecified chronic gastritis without bleeding (principal); K44.9 Diaphragmatic hernia without obstruction or gangrene; K57.30 Diverticulosis of large intestine without perforation or abscess without bleeding; K31.7 Polyp of stomach and duodenum; K63.89 Other specified diseases of intestine; K31.89 Other diseases of stomach and duodenum; K21.9 Gastro-esophageal reflux disease without esophagitis; N60.01 Solitary cyst of right breast; F41.8 Other specified anxiety disorders; I10 Essential (primary) hypertension; Z79.899 Other long term (current) drug therapy; Z92.21 Personal history of antineoplastic chemotherapy
CPT/HCPCS: 43239; 43251; 45380; 88305; 88313; 88341; 88342; J7120; J2405

== ENCOUNTER → 2023-08-02 | Outpatient (CLI) | payer OTHER, SELFPAY ==
--- NOTE | 2023-08-02 11:40 | RAD_ITS ---
STUDY: X-RAY - RIGHT SHOULDER REASON FOR EXAM: Female, 63 years old. Shoulder pain. TECHNIQUE: 5 views of the right shoulder. COMPARISON: None. FINDINGS: Normal glenohumeral articulation. 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 Normal acromion. Normal humeral head and visualized proximal humerus. The soft tissue structures are unremarkable. There is no demonstrated fracture. Normal visualized pulmonary apex. RAD/Shoulder min 2 Views IMPRESSION: Mild acromioclavicular arthrosis. Electronically Signed: Tim Barone MD at 16:07 EDT ,
[2023-08-02 12:37] LABS: Absolute Neutrophil Count 3.1 X10^3/uL (2.0-7.7); Basophil# 0.09 X10^3/uL; Basophil% 1.6 % (0-1); Eosinophil# 0.28 X10^3/uL; Hematocrit 42.2 % (37-47); Hemoglobin 14.1 g/dL (12.0-15.0); Lymphocyte % 30.4 % (19-41); Mean Corp Hgb Conc 33.4 g/dL (32-36); Mean Corpuscular Hgb 29.9 pg (27.0-32.0); Mean Corpuscular Volume 89.4 fL (81-99); Mean Platelet Vol. 10.4 fl (6.2-12.0); Monocyte# 0.45 X10^3/uL; NRBC Flagged by Analyzer 0 % (0-5); Neutrophil # 3.05 X10^3/uL (2.7-7.7); Neutrophil % 54.5 % (47-70); Platelet Count 234 K/mm3 (150-450); RBC Distribution Width CV 12.2 % (11.6-14.6); RBC Distribution Width SD 40.6 fl (35.1-43.9); Red Blood Count 4.72 M/mm3 (4.2-5.4); White Blood Count 5.6 K/mm3 (4.4-11.0)
[2023-08-02 12:47] LABS: ALB/GLOB Ratio 1.1 RATIO (0.9-2.4); AST(SGOT) 24 U/L (15-37); Alanine Aminotransfer ALT/SGPT 50 U/L (13-56); Albumin, Serum 3.9 g/dL (3.2-5.0); Alkaline Phosphatase 70 U/L (45-117); Anion Gap 5 (5-15); BUN 22 mg/dL (7-18); BUN/Creat Ratio 26.4 RATIO (10-20); Calcium,Total 9.2 mg/dL (8.5-10.1); Chloride 110 mmol/L (98-107); Creatinine, Serum 0.83 mg/dL (0.55-1.02); EST Glomerular Filtration Rate 73 mL/min (>60); Est Glom Filt Rate - Afr Amer 89 mL/min (>60); Globulin 3.5 g/dL (2.2-4.2); Glucose 98 mg/dL (74-106); Potassium 4.1 mmol/L (3.5-5.1); Protein, Total 7.4 g/dL (6.4-8.2); Sodium Level 140 mmol/L (136-145); Thyroid Stim Hormone (TSH) 1.54 uIU/mL (0.358-3.74)
== END | disposition home or self-care (01) ==
LOC: BIMLAB 10:34
PROVIDERS: PCP Family Medicine; Visit Provider Family Medicine
DX: M25.511 Pain in right shoulder (principal); I10 Essential (primary) hypertension; M19.90 Unspecified osteoarthritis, unspecified site; N95.2 Postmenopausal atrophic vaginitis; R63.5 Abnormal weight gain; R35.0 Frequency of micturition; F41.8 Other specified anxiety disorders; R53.83 Other fatigue
CPT/HCPCS: 36415; 73030; 80053; 84443; 85025

== ENCOUNTER → 2024-08-15 | Outpatient (CLI) | payer OTHER, SELFPAY ==
[2024-08-15 16:31] LABS: Absolute Lymphocyte Count 1.94 X10^3/uL (0.83-4.51); Basophil# 0.08 X10^3/uL; Basophil% 1.2 % (0-1); Eosinophil# 0.23 X10^3/uL; Eosinophils% 3.4 % (0-5); Hematocrit 41.9 % (37-47); Hemoglobin 14.4 g/dL (12.0-15.0); Lymphocyte # 1.94 X10^3/ul (0.83-4.51); Lymphocyte % 28.7 % (19-41); Mean Corp Hgb Conc 34.4 g/dL (32-36); Mean Corpuscular Hgb 30.7 pg (27.0-32.0); Mean Corpuscular Volume 89.3 fL (81-99); Mean Platelet Vol. 10.4 fl (6.2-12.0); Monocyte# 0.45 X10^3/uL; Monocyte% 6.7 % (0-10); NRBC Flagged by Analyzer 0 % (0-5); Neutrophil # 4.03 X10^3/uL (2.7-7.7); Neutrophil % 59.7 % (47-70); Platelet Count 222 K/mm3 (150-450); RBC Distribution Width CV 12.1 % (11.6-14.6); RBC Distribution Width SD 39.3 fl (35.1-43.9); Red Blood Count 4.69 M/mm3 (4.2-5.4); White Blood Count 6.8 K/mm3 (4.4-11.0)
[2024-08-15 16:34] LABS: Erythrocyte Sedimentation Rate 6 mm/hr (0-30)
[2024-08-16 11:24] LABS: ALB/GLOB Ratio 4.9 RATIO (0.9-2.4); AST(SGOT) 26 U/L (<=31); Alanine Aminotransfer ALT/SGPT 38 U/L (<=34); Albumin, Serum 4.2 g/dL (3.4-4.8); Alkaline Phosphatase 75 U/L (35-104); Anion Gap 10 (5-15); BUN 15 mg/dL (4-19); Calcium,Total 9.6 mg/dL (7.6-11.0); Carbon Dioxide 22.9 mmol/L (21.0-32.0); Chloride 107 mmol/L (98-108); Creatinine, Serum 0.81 mg/dL (0.70-1.20); EST Glomerular Filtration Rate 81 (>60); Globulin 0.9 g/dL (2.2-4.2); Glucose 84 mg/dL (70-99); Potassium 4.3 mmol/L (3.3-5.1); Protein, Total 5.1 g/dL (5.9-8.4); Sodium Level 140 mmol/L (133-145); Total Bilirubin 0.43 mg/dL (0.00-1.30); Vitamin D,25 Hydroxy 18.7 ng/mL (30-100)
== END | disposition home or self-care (01) ==
LOC: BIMLAB 14:26
PROVIDERS: PCP Family Medicine; Referring Provider Family Medicine; Visit Provider Family Medicine
DX: M25.511 Pain in right shoulder (principal); R53.82 Chronic fatigue, unspecified; M81.0 Age-related osteoporosis without current pathological fracture
CPT/HCPCS: 36415; 80053; 82306; 84443; 85025; 85652